=== PATIENT | female | born 1985 | race Caucasian/White ===

== ENCOUNTER → 2022-07-05 | Outpatient (CLI) | payer OTHER ==
[2022-07-05 08:40] VITALS: BP 103/77; PULSE 74; RESP 17; TEMP 98
--- NOTE | 2022-07-05 09:33 | P.HPOB ---
History of Present Illness H&P Date: 07/05/22 Chief Complaint: The patient is here for her routine gynecologic exam. This is a 36-year-old 012 with an LMP of approximately 2016. She is here to establish with this office. It has been about 2 years since her last pelvic exam. She had a Mirena IUD placed approximately 2-3 years ago. This is her second Mirena IUD. She has been amenorrheic while using the Mirena IUD. She would like to have the Mirena IUD removed since she would like to attempt . She is without gynecologic complaints. Review of Systems The patient's weight has been stable over the last year. She denies respiratory, cardiac, or G.I. problems. 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 No other STDs. History of Any Multi-Drug Resistant Organisms: None Reported Past Surgical History: No Surgical Hx Reported Additional Past Surgical History / Comment(s): Past OB history: 2 vaginal deliveries and one VTP. Past Anesthesia/Blood Transfusion Reactions: No Reported Reaction Past Psychological History: Anxiety, Depression (Controlled with medication.) Smoking Status: Never smoker Past Alcohol Use History: Occasional (0-3 per month) Past Drug Use History: Marijuana (Tried marijuana in the last year but does not regularly use this.) Additional History: She is single and has been with her boyfriend since 2021. They live together. 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 - Past Family History Mother Family Medical History: Diabetes Mellitus, Hypertension Additional Family Medical History / Comment(s): No family history of mental retardation or defects. Father Family Medical History: Diabetes Mellitus Additional Family Medical History / Comment(s): Paternal grandmother had colon cancer. Medications and Allergies Home Medications Medication Instructions Recorded Confirmed Type Escitalopram [Lexapro] 20 mg PO DAILY 07/05/22 07/05/22 History Propranolol [Inderal] 20 mg PO BID 07/05/22 07/05/22 History buPROPion XL [Wellbutrin XL] 300 mg PO DAILY 07/05/22 07/05/22 History Allergies Allergy/AdvReac Type Severity Reaction Status Date / Time No Known Allergies Allergy Unverified 07/05/22 08:35 Exam Vital Signs Temp Pulse Resp BP Pulse Ox 07/05/22 08:37 98.0 F 74 17 103/77 99 Intake and Output 07/04/22 07/05/22 07/05/22 22:59 06:59 14:59 Other: Weight 110.223 kg Height 5 feet 7 inches, weight 243 pounds, BMI 38.1. This is a well-developed well-nourished white female who is alert and oriented times 3 in no acute distress. HEENT: Within normal limits. NECK: Supple without mass or thyromegaly. CHEST AND LUNGS: Clear to auscultation. HEART: Regular rate and rhythm. BREASTS: Are without mass or discharge. AXILLARY EXAM: Negative for adenopathy. BACK: Negative for CVA tenderness. ABDOMEN: Soft, nontender, without palpable masses. PELVIC EXAM: Normal external genitalia. Cervix and vagina appear normal. The cervix is multiparous. The IUD string protruded from the cervix by about 2.5cm. There is no unusual discharge. There is no evidence of prolapse. The uterus is midposition, nongravid size and nontender. There are no palpable adnexal masses or tenderness. RECTAL EXAM: negative for mass or tenderness. EXTREMITIES: Nontender. Procedure: Per the patient's request, the Mirena IUD was removed. This was done by grasping the IUD string with a ring forcep and this was removed without difficulty. The IUD was intact. The patient tolerated the procedure well. IMPRESSION: 1. 36-year-old female who has been amenorrheic while using the Mirena IUD during the past 7 years with normal gynecologic exam. 2. The Mirena IUD was removed today without difficulty and this was done by the patient's request since she would like to attempt in the near future. PLAN: 1. Pap smear cotest was performed. 2. Self breast awareness was discussed with the patient. We have also discussed symptoms associated with inflammatory breast cancer. 3. We have had a long discussion regarding the conception planning. I have recommended that she avoid until she has had 2 normal menstrual periods. She will keep a menstrual calendar. Have also recommended that she discuss her medications with the prescribing physician and let them know that she is planning to attempt . She understands there are theoretical risks taking medications during . She will try to minimize medications to control her depression and anxiety. She should not change her medications on her own, but consult with the prescribing physician. I have also recommended that she take a daily multivitamin with folic acid. She should also watch what she ingests including [id number] medications That these could potentially effect a . She understands that I no longer deliver babies and that she should establish with a local dispersion mixer for a . 4. Self breast awareness was discussed with the patient. We have also discussed symptoms associated with inflammatory breast cancer. 5. Osteoporosis prevention was discussed. I have stressed the importance of adequate calcium, vitamin D and regular exercise. Recommended amounts of calcium and vitamin D were also discussed. 6. She was advised to return in one year for her annual well woman exam. If she does get she will establish with a local dispersion mixer.
== END ==
LOC: WWCWWP 08:26
PROVIDERS: ATTEND Obstetrics & Gynecology
DX: Z01.419 Encounter for gynecological examination (general) (routine) without abnormal findings (principal); Z30.432 Encounter for removal of intrauterine contraceptive device; Z79.899 Other long term (current) drug therapy; Z80.0 Family history of malignant neoplasm of digestive organs; Z82.49 Family history of ischemic heart disease and other diseases of the circulatory system; Z83.3 Family history of diabetes mellitus

== ENCOUNTER 2023-02-13 01:57 | Emergency (ER) | payer OTHER ==
[2023-02-13 02:03] VITALS: RESP 18; TEMP 98.6
[2023-02-13] MEDS ORDERED: SODIUM CHLORIDE 0.9% 1,000 ML IV STA (02:21)
[2023-02-13] MEDS ORDERED: METOCLOPRAMIDE 5 MG/ML 2 ML VIAL IVP STA (02:22)
--- NOTE | 2023-02-13 02:29 | ED ---
General Adult HPI - General Chief complaint: Nausea/Vomiting/Diarrhea Stated complaint: 8weeks , N/V Time Seen by Provider: 02/13/23 02:07 Source: patient Mode of arrival: ambulatory Limitations: no limitations - History of Present Illness Initial comments: 37 year old A1 female presenting to the ED with a chief complaint of nausea and vomiting. Patient reports she is currently approximately 8 weeks . Patient reports the last 3 weeks she has had nausea and vomiting however significant worsening of it over the past few days. Patient states for the past 2-3 days has been unable to keep any food down. Does not follow with OB at. No chest pain or shortness of breath. Denies vaginal bleeding or abdominal pain. No other complaints. - Related Data Home Medications Medication Instructions Recorded Confirmed Escitalopram [Lexapro] 20 mg PO DAILY 07/05/22 07/05/22 Propranolol [Inderal] 20 mg PO BID 07/05/22 07/05/22 buPROPion XL [Wellbutrin XL] 300 mg PO DAILY 07/05/22 07/05/22 Previous Rx's Medication Instructions Recorded Doxylamine Succinate/Vit B6 1 tab PO DIRECTED #120 tab 02/13/23 [Constantino Batista 10-10 mg Tablet] Allergies Allergy/AdvReac Type Severity Reaction Status Date / Time No Known Allergies Allergy Verified 02/13/23 02:02 Review of Systems ROS Statement: Those systems with pertinent positive or pertinent negative responses have been documented in the HPI. ROS Other: All systems not noted in ROS Statement are negative. 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 No other STDs. History of Any Multi-Drug Resistant Organisms: None Reported Past Surgical History: No Surgical Hx Reported Additional Past Surgical History / Comment(s): Past OB history: 2 vaginal d eliveries and one VTP. Past Anesthesia/Blood Transfusion Reactions: No Reported Reaction Past Psychological History: Anxiety, Depression Smoking Status: Never smoker Past Alcohol Use History: Occasional Past Drug Use History: Marijuana - Past Family History Mother Family Medical History: Diabetes Mellitus, Hypertension Additional Family Medical History / Comment(s): No family history of mental retardation or defects. Father Family Medical History: Diabetes Mellitus Additional Family Medical History / Comment(s): Paternal grandmother had colon cancer. General Exam Limitations: no limitations General appearance: alert Neck exam: Present: normal inspection Respiratory exam: Present: normal lung sounds bilaterally Cardiovascular Exam: Present: regular rate, normal rhythm GI/Abdominal exam: Present: soft (No tenderness to palpation. No rebound guarding or rigidity.) Neurological exam: Present: alert, oriented X3 Skin exam: Present: warm, dry Course Vital Signs 02/13/23 02:00 Temperature 98.6 F Pulse Rate 84 Respiratory 18 Rate Blood Pressure 156/96 O2 Sat by Pulse 100 Oximetry Medical Decision Making - Medical Decision Making Was pt. sent in by a medical professional or institution (, PA, CHARRER, urgent care, hospital, or half-way...) When possible be specific @ -None Did you speak to anyone other than the patient for history (EMS, parent, family, police, friend...)? What history was obtained from this source @ -No Did you review nursing and triage notes (agree or disagree)? Why? @ -I reviewed and agree with nursing and triage notes Were old charts reviewed (outside hosp., previous admission, EMS record, old EKG, old radiological studies, urgent care reports/EKG's, half-way records)? Report findings @ -No old charts were reviewed Differential Diagnosis (chest pain, altered mental status, abdominal pain women, abdominal pain men, vaginal bleeding, weakness, fever, dyspnea, syncope, headache, dizziness, GI bleed, back pain, seizure, CVA, palpatations, mental health, musculoskeletal)? @ -Differential Abdominal Pain Women: Appendicitis, Cholecystitis, diverticulosis, ischemic bowel, pancreatitis, hepatitis, UTI, gastroenteritis, AAA, incarcerated hernia, bowel obstruction, constipation, inflammatory bowel, hepatitis, peptic ulcer disease, splenic infarction, perforated viscus, vulvitis, ovarian torsion, PID, kidney stone, placenta abruption, this is not meant to be an all-inclusive list EKG interpreted by me (3pts min.). @ -None X-rays interpreted by me (1pt min.). @ -None done CT interpreted by me (1pt min.). @ -None done U/S interpreted by me (1pt. min.). @ -None done What testing was considered but not performed or refused? (CT, X-rays, U/S, labs)? Why? @ -None What meds were considered but not given or refused? Why? @ -None Did you discuss the management of the patient with other professionals (professionals i.e. , PA, CHARRER, lab, RT, psych nurse, addiction social worker, technology specialist, teacher, licensed loan officer, manager of case)? Give summary @ -No Was smoking cessation discussed for >3mins.? @ -No Was critical care preformed (if so, how long)? @ -No Were there social determinants of health that impacted care today? How? (Homelessness, low income, unemployed, alcoholism, drug addiction, transportation, low edu. Level, literacy, decrease access to med. care, halfway, rehab)? @ -No Was there de-escalation of care discussed even if they declined (Discuss DNR or withdrawal of care, Hospice)? DNR status @ -No What co-morbidities impacted this encounter? (DM, HTN, Smoking, COPD, CAD, Cancer, CVA, ARF, Chemo, Hep., AIDS, mental health diagnosis, sleep apnea, morbid obesity)? @ - Was patient admitted / discharged? Hospital course, mention meds given and route, prescriptions, significant lab abnormalities, going to OR and other pertinent info. @ -Discharge A 37-year-old female who is approximately 8 weeks presents to the ED with nausea and vomiting, no abdominal pain or vaginal bleeding. Laboratory studies largely unremarkable. Urine did show some white blood cells however sample was very contaminated and patient asymptomatic. Discussed pros and cons of antiemetic use. Patient states that she would like to try Reglan. Patient provided a dose of Reglan here in the ED with significant improvement of symptoms. Patient PO challenged tolerated with no difficulty. Provided starter pack of Zofran and discussed pros and cons of use. Discharged with prescription for likely just in stable condition. 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 Discussed return precautions with patient and family who verbalizes agreement. Undiagnosed new problem with uncertain prognosis? @ -No Drug Therapy requiring intensive monitoring for toxicity (Heparin, Nitro, Insulin, Cardizem)? @ -No Were any procedures done? @ -No Diagnosis/symptom? @ -Nausea and vomiting Acute, or Chronic, or Acute on Chronic? @ -Acute Uncomplicated (without systemic symptoms) or Complicated (systemic symptoms)? @ -Uncomplicated Side effects of treatment? @ -No Exacerbation, Progression, or Severe Exacerbation? @ -No Poses a threat to life or bodily function? How? (Chest pain, USA, [place], pneumonia, PE, COPD, DKA, ARF, appy, cholecystitis, CVA, Diverticulitis, Homicidal, Suicidal, threat to staff... and all critical care pts) @ -No - Lab Data Result diagrams: 02/13/23 02:21 02/13/23 02:21 Lab Results 02/13/23 02/13/23 02/13/23 Range/Units 02:21 02:21 02:31 WBC 10.5 (3.8-10.6) k/uL RBC 4.82 (3.80-5.40) m/uL Hgb 14.6 (11.4-16.0) gm/dL Hct 43.5 (34.0-46.0) % MCV 90.1 (80.0-100.0) fL MCH 30.3 (25.0-35.0) pg MCHC 33.6 (31.0-37.0) g/dL RDW 13.4 (11.5-15.5) % Plt Count 325 (150-450) k/uL MPV 7.9 Neutrophils % 75 % Lymphocytes % 18 % Monocytes % 4 % Eosinophils % 1 % Basophils % 0 % Neutrophils # 7.8 H (1.3-7.7) k/uL Lymphocytes # 1.9 (1.0-4.8) k/uL Monocytes # 0.4 (0-1.0) k/uL Eosinophils # 0.1 (0-0.7) k/uL Basophils # 0.0 (0-0.2) k/uL Sodium 136 L (137-145) mmol/L Potassium 4.3 (3.5-5.1) mmol/L Chloride 104 (98-107) mmol/L Carbon Dioxide 21 L (22-30) mmol/L Anion Gap 11 mmol/L BUN 12 (7-17) mg/dL Creatinine 0.54 (0.52-1.04) mg/dL Est GFR (CKD-EPI)AfAm >90 (>60 ml/min/1.73 sqM) Est GFR (CKD-EPI)NonAf >90 (>60 ml/min/1.73 sqM) Glucose 87 (74-99) mg/dL Calcium 9.5 (8.4-10.2) mg/dL Total Bilirubin 0.9 (0.2-1.3) mg/dL AST 29 (14-36) U/L ALT 27 (4-34) U/L Alkaline Phosphatase 39 (38-126) U/L Total Protein 7.3 (6.3-8.2) g/dL Albumin 4.4 (3.5-5.0) g/dL Urine Color Yellow Urine Appearance Turbid H (Clear) Urine pH 5.5 (5.0-8.0) Ur Specific [place] 1.031 (1.001-1.035) Urine Protein 1+ H (Negative) Urine Glucose (UA) Negative (Negative) Urine Ketones 3+ H (Negative) Urine Blood Small H (Negative) Urine Nitrite Negative (Negative) Urine Bilirubin Negative (Negative) Urine Urobilinogen <2.0 (<2.0) mg/dL Ur Leukocyte Esterase Large H (Negative) Urine RBC 7 H (0-5) /hpf Urine WBC 102 H (0-5) /hpf Ur Squamous Epith Cells 72 H (0-4) /hpf Urine Bacteria Moderate H (None) /hpf Urine Mucus Many H (None) /hpf Disposition Clinical Impression: Nausea and vomiting during Disposition: HOME SELF-CARE Condition: Good Instructions (If sedation given, give patient instructions): Nausea and Vomiting in (ED) Prescriptions: Doxylamine Succinate/Vit B6 [Constantino Batista 10-10 mg Tablet] 1 tab PO DIRECTED #120 tab Is patient prescribed a controlled substance at d/c from ED?: No Referrals: None,Stated [Primary Care Provider] - 1-2 days Time of Disposition: 04:09
[2023-02-13 02:49] LABS: Basophils % (A) 0 %; Eosinophils # (A) 0.1 k/uL (0-0.7); Eosinophils % (A) 1 %; HCT 43.5 % (34.0-46.0); HGB 14.6 gm/dL (11.4-16.0); Lymphocytes # (A) 1.9 k/uL (1.0-4.8); Lymphocytes % (A) 18 %; MCH 30.3 pg (25.0-35.0); MCHC 33.6 g/dL (31.0-37.0); MCV 90.1 fL (80.0-100.0); Mean Platelet Volume 7.9; Monocytes # (A) 0.4 k/uL (0-1.0); Monocytes % (A) 4 %; Neutrophils # (A) 7.8 k/uL (1.3-7.7); Neutrophils % (A) 75 %; Platelet Count 325 k/uL (150-450); RBC 4.82 m/uL (3.80-5.40); RDW 13.4 % (11.5-15.5); WBC 10.5 k/uL (3.8-10.6)
[2023-02-13 02:56] LABS: Appearance,Urine Turbid (Clear); Bacteria,Urine Moderate /hpf; Bilirubin,Urine Negative (Negative); Blood,Urine Small (Negative); Color,Urine Yellow; Glucose,Urine (UA) Negative (Negative); Ketones,Urine 3+ (Negative); Leukocyte Esterase,Urine Large (Negative); Mucus,Urine Many /hpf; Nitrite,Urine Negative (Negative); PH, Urine 5.5 (5.0-8.0); Protein,Urine 1+ (Negative); RBC,Urine 7 /hpf (0-5); Specific Gravity,Urine 1.031 (1.001-1.035); Squamous Epithelial Cell,Urine 72 /hpf (0-4); Urobilinogen,Urine <2.0 mg/dL (<2.0); WBC,Urine 102 /hpf (0-5)
[2023-02-13 03:02] LABS: ALT 27 U/L (4-34); AST 29 U/L (14-36); African American GFR (CKD) >90 (>60 ml/min/1.73 sqM); Albumin 4.4 g/dL (3.5-5.0); Alkaline Phosphatase 39 U/L (38-126); Anion Gap 11 mmol/L; Blood Urea Nitrogen 12 mg/dL (7-17); Calcium 9.5 mg/dL (8.4-10.2); Carbon Dioxide 21 mmol/L (22-30); Chloride 104 mmol/L (98-107); Glucose 87 mg/dL (74-99); Non-African American GFR(CKD) >90 (>60 ml/min/1.73 sqM); Potassium 4.3 mmol/L (3.5-5.1); Sodium 136 mmol/L (137-145); Total Bilirubin 0.9 mg/dL (0.2-1.3); Total Protein 7.3 g/dL (6.3-8.2)
[2023-02-13] MEDS ORDERED: ONDANSETRON 4 MG ODT STARTER PACK 2 TAB BTL PO STA (04:07)
[2023-02-13 04:50] VITALS: BP 122/7; PULSE 79
== END 2023-02-13 04:46 | disposition home or self-care (01) ==
LOC: EC 01:57
DX: O21.9 Vomiting of pregnancy, unspecified (principal); O99.331 Smoking (tobacco) complicating pregnancy, first trimester; F12.90 Cannabis use, unspecified, uncomplicated; Z86.59 Personal history of other mental and behavioral disorders; Z3A.08 8 weeks gestation of pregnancy
CPT/HCPCS: 36415; 80053; 85025; 81001; 84702; 99284; 96374; 96361; J2765; S0119

== ENCOUNTER 2023-05-27 17:45 | Emergency (ER) | payer OTHER ==
[2023-05-27 17:53] VITALS: RESP 20; TEMP 98.4
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
[2023-05-27 18:59] LABS: Appearance,Urine Cloudy (Clear); Bilirubin,Urine Negative (Negative); Blood,Urine Negative (Negative); Color,Urine Light Yellow; Glucose,Urine (UA) Negative (Negative); Ketones,Urine Negative (Negative); Leukocyte Esterase,Urine Moderate (Negative); Mucus,Urine Rare /hpf; Nitrite,Urine Negative (Negative); PH, Urine 6.5 (5.0-8.0); Protein,Urine Trace (Negative); RBC,Urine 2 /hpf (0-5); Specific Gravity,Urine 1.028 (1.001-1.035); Squamous Epithelial Cell,Urine 14 /hpf (0-4); Urobilinogen,Urine <2.0 mg/dL (<2.0); WBC,Urine 14 /hpf (0-5)
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
[2023-05-27 20:08] VITALS: BP 115/83; PULSE 102
== END 2023-05-27 20:04 | disposition home or self-care (01) ==
LOC: EC 17:45
DX: O9A.212 Injury, poisoning and certain other consequences of external causes complicating pregnancy, second trimester (principal); S39.91XA Unspecified injury of abdomen, initial encounter; O99.322 Drug use complicating pregnancy, second trimester; F12.90 Cannabis use, unspecified, uncomplicated; Z86.59 Personal history of other mental and behavioral disorders; Z3A.23 23 weeks gestation of pregnancy; V49.50XA Passenger injured in collision with unspecified motor vehicles in traffic accident, initial encounter; Y92.410 Unspecified street and highway as the place of occurrence of the external cause
CPT/HCPCS: 76805; 81001; 87086; 99284

== ENCOUNTER 2023-05-27 19:58 | Outpatient (CLI) | payer OTHER ==
[2023-05-28 01:56] VITALS: BP 134/76; PULSE 91; RESP 16; TEMP 97.4
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
== END 2023-05-27 21:25 | disposition home or self-care (01) ==
LOC: FBPOP 19:58
PROVIDERS: ATTEND Obstetrics & Gynecology
DX: O9A.212 Injury, poisoning and certain other consequences of external causes complicating pregnancy, second trimester (principal); S39.91XA Unspecified injury of abdomen, initial encounter; Z3A.23 23 weeks gestation of pregnancy; V89.2XXA Person injured in unspecified motor-vehicle accident, traffic, initial encounter
CPT/HCPCS: 99213

== ENCOUNTER 2023-09-12 11:48 | Outpatient (CLI) | payer OTHER ==
[2023-09-12 14:18] LABS: Basophils % (A) 0 %; Eosinophils # (A) 0.1 k/uL (0-0.7); Eosinophils % (A) 1 %; HCT 37.1 % (34.0-46.0); HGB 11.8 gm/dL (11.4-16.0); Lymphocytes # (A) 1.4 k/uL (1.0-4.8); Lymphocytes % (A) 16 %; MCH 27.9 pg (25.0-35.0); MCHC 31.8 g/dL (31.0-37.0); MCV 87.7 fL (80.0-100.0); Mean Platelet Volume 8.7; Monocytes # (A) 0.5 k/uL (0-1.0); Monocytes % (A) 5 %; Neutrophils # (A) 6.8 k/uL (1.3-7.7); Neutrophils % (A) 76 %; Platelet Count 259 k/uL (150-450); RBC 4.23 m/uL (3.80-5.40); RDW 14.7 % (11.5-15.5)
[2023-09-12 14:28] LABS: ALT 13 U/L (4-34); AST 17 U/L (14-36); African American GFR (CKD) >90 (>60 ml/min/1.73 sqM); Blood Urea Nitrogen 11 mg/dL (7-17); Non-African American GFR(CKD) >90 (>60 ml/min/1.73 sqM)
[2023-09-12 14:29] LABS: Creatinine,Urine Random 247.9 mg/dL; Protein/Creatinine Ratio,Urine 0.024
[2023-09-12 14:34] LABS: Appearance,Urine Cloudy (Clear); Bacteria,Urine Rare /hpf; Bilirubin,Urine Negative (Negative); Blood,Urine Trace (Negative); Color,Urine Yellow; Glucose,Urine (UA) Negative (Negative); Ketones,Urine Negative (Negative); Leukocyte Esterase,Urine Negative (Negative); Mucus,Urine Moderate /hpf; Nitrite,Urine Negative (Negative); PH, Urine 6.5 (5.0-8.0); Protein,Urine 1+ (Negative); RBC,Urine 1 /hpf (0-5); Squamous Epithelial Cell,Urine 7 /hpf (0-4); Urobilinogen,Urine <2.0 mg/dL (<2.0); WBC,Urine 1 /hpf (0-5)
[2023-09-12 15:31] VITALS: BP 135/92; PULSE 109; RESP 16; TEMP 98
--- NOTE | 2023-09-15 09:47 | P.MSEPDOC ---
Presenting Problems - Arrival Data Date of Arrival on Unit: 09/12/23 Time of Arrival on Unit: 11:48 Mode of Transport: Ambulatory - Complaint OB-Reason for Admission/Chief Complaint: PIH Medical History - Information : 4 Para: 2 Term: 2 : 0 Abortions: Spontaneous or Elective: 1 Number of Living Children: 2 - Gestational Age Gestational Age by JAZZMINE (wks/days): 39 Weeks and 1 Days Review of Systems - Review of Systems Constitutional: No problems Breast: No problems ENT: No problems Cardiovascular: No problems Respiratory: No problems Gastrointestinal: No problems Genitourinary: No problems Musculoskeletal: No problems Neurological: No problems Skin: No problems Vital Signs - Temperature Temperature: 98.0 F Temperature Source: Oral - Pulse Right Sitting Pulse Rate: 109 Pulse Assessment Method: Automatic Cuff - Respirations Respiratory Rate: 16 Oxygen Delivery Method: Room Air O2 Sat by Pulse Oximetry: 95 - Blood Pressure Right Arm Blood Pressure: 135/92 Blood Pressure Mean: 106 Blood Pressure Source: Automatic Cuff Medical Screen Scoring - Uterine Contractions Intensity: Mild Resting: Soft to palpation - Assessment - Baby A Baseline FHR: 140 Heart Rate - NICHD Category: Category I (Normal) NST: Reactive Physician Notification - Physician Notified Physician Notified Date: 09/12/23 Physician Notified Time: 15:02 Physician: Darryl De La Vega Order Received: Yes (d/c home) Maternal Triage Index - Prompt/Priority 3 Prompt Priority 3: Yes Criteria Met for Priority 3: pt sent from office for [facility] eval, bps 130-140s/70-90s. pt asymptomatic, labs wnl, reactive nst. Disposition - Disposition OB Disposition: Discharge to home, Written follow up instructions reviewed Discharge Date: 09/12/23 Discharge Time: 15:02 I agree with the RN Medical Screening Exam: Yes Case reviewed; plan agreed upon as documented in EMR&OBIX.: Yes Diagnosis: RELATED CONDITIONS, UNSPECIFIED, THIRD TRIMESTER
== END 2023-09-12 15:02 | disposition home or self-care (01) ==
LOC: FBPOP 11:48
PROVIDERS: ATTEND Obstetrics & Gynecology
DX: O13.3 Gestational [pregnancy-induced] hypertension without significant proteinuria, third trimester (principal); Z3A.39 39 weeks gestation of pregnancy
CPT/HCPCS: 36415; 59025; 81001; 82565; 82570; 84156; 84450; 84460; 84520; 85025

== ENCOUNTER 2023-09-14 10:28 | Outpatient (CLI) | payer OTHER ==
[2023-09-14 11:09] LABS: Appearance,Urine Turbid (Clear); Bacteria,Urine Moderate /hpf; Bilirubin,Urine Negative (Negative); Blood,Urine Small (Negative); Color,Urine Yellow; Glucose,Urine (UA) Negative (Negative); Ketones,Urine Negative (Negative); Leukocyte Esterase,Urine Large (Negative); Mucus,Urine Many /hpf; Nitrite,Urine Negative (Negative); Protein,Urine 1+ (Negative); RBC,Urine 8 /hpf (0-5); Specific Gravity,Urine 1.028 (1.001-1.035); Squamous Epithelial Cell,Urine 68 /hpf (0-4); Urobilinogen,Urine <2.0 mg/dL (<2.0); WBC,Urine 83 /hpf (0-5)
[2023-09-14 12:01] VITALS: BP 142/82; PULSE 103; RESP 18; TEMP 97.3
--- NOTE | 2023-09-15 09:48 | P.MSEPDOC ---
Presenting Problems - Arrival Data Date of Arrival on Unit: 09/14/23 Time of Arrival on Unit: 10:28 Mode of Transport: Ambulatory - Complaint OB-Reason for Admission/Chief Complaint: Headache, Visual Disturbances, Pain Comment: Patient had elevated blood pressures at home and complaints of headache rated 4/10. Had visual disturbances last night with ocular migraine and floaters. Medical History - Information : 4 Para: 2 Term: 2 : 0 Abortions: Spontaneous or Elective: 1 Number of Living Children: 2 - Gestational Age Gestational Age by JAZZMINE (wks/days): 39 Weeks and 3 Days Review of Systems - Review of Systems Constitutional: No problems Breast: No problems ENT: No problems Cardiovascular: No problems Respiratory: No problems Gastrointestinal: No problems Genitourinary: No problems Musculoskeletal: No problems Neurological: No problems Skin: No problems Vital Signs - Temperature Temperature: 97.3 F Temperature Source: Temporal Artery Scan - Pulse Pulse Oximetery Pulse Rate: 103 Pulse Assessment Method: Pulse Oximetry - Respirations Respiratory Rate: 18 Oxygen Delivery Method: Room Air O2 Sat by Pulse Oximetry: 97 - Blood Pressure Right Arm Blood Pressure: 142/82 Blood Pressure Mean: 102 Blood Pressure Source: Automatic Cuff Medical Screen Scoring - Uterine Contractions Intensity: Mild Resting: Soft to palpation - Assessment - Baby A Baseline FHR: 130 Heart Rate - NICHD Category: Category I (Normal) NST: Reactive Maternal Triage Index - Maternal Triage Index Presenting for scheduled procedure w/no complaint: No - Stat/Priority 1 Stat Priority 1: No - Urgent/Priority 2 Urgent Priority 2: Yes Provider Notified: Darryl De La Vega Provider Notified Time: 11:14 Criteria Met for Priority 2: Patient had elevated blood pressures at home and complaints of headache rated 4/10. Had visual disturbances last night with ocular migraine and floaters. Disposition - Disposition OB Disposition: Triage, Discharge to home, Written follow up instructions reviewed Discharge Date: 09/14/23 Discharge Time: 11:20 I agree with the RN Medical Screening Exam: Yes Physician's MSE Comment: I have neither seen nor examined the patient. Case reviewed; plan agreed upon as documented in EMR&OBIX.: Yes Diagnosis: RELATED CONDITIONS, UNSPECIFIED, THIRD TRIMESTER
== END 2023-09-14 11:20 | disposition home or self-care (01) ==
LOC: FBPOP 10:28
PROVIDERS: ATTEND Obstetrics & Gynecology
DX: O99.353 Diseases of the nervous system complicating pregnancy, third trimester (principal); G43.809 Other migraine, not intractable, without status migrainosus; H53.8 Other visual disturbances; Z3A.39 39 weeks gestation of pregnancy
CPT/HCPCS: 59025; 81001; G0463; 99213

== ENCOUNTER 2023-09-15 06:17 | Inpatient (IN) | payer OTHER ==
[2023-09-15] MEDS ORDERED: LIDOCAINE 0.5% (PF) 5 MG/ML (50 ML SDV) SQ PRN (06:39)
[2023-09-15] MEDS ORDERED: TRANEXAMIC 1,000 MG/100ML-NACL 1,000 MG in EMPTY BAG 1 BAG IV PRN (06:39)
[2023-09-15] MEDS ORDERED: METHYLERGONOVINE 0.2 MG/ML 1 ML AMP IM PRN (06:39)
[2023-09-15] MEDS ORDERED: CARBOPROST TROMETHAMINE 250 MCG/ML 1 ML AMP IM PRN (06:39)
[2023-09-15] MEDS ORDERED: OXYTOCIN 10 UNIT/ML 1 ML VIAL IM PRN (06:39)
[2023-09-15] MEDS ORDERED: TERBUTALINE 1 MG/ML VIAL SQ PRN (06:39)
[2023-09-15] MEDS ORDERED: miSOPROStoL 200 MCG TAB PO PRN (06:39)
[2023-09-15] MEDS: LACTATED RINGERS 1,000 ML IV SCH (06:48)
[2023-09-15] MEDS: OXYTOCIN 30 UNITS/500 ML NS 30 UNIT in SALINE 1 500ML.BAG IV SCH (06:49)
[2023-09-15 07:01] LABS: Basophils % (A) 1 %; Eosinophils # (A) 0.1 k/uL (0-0.7); Eosinophils % (A) 2 %; HCT 34.4 % (34.0-46.0); HGB 11.1 gm/dL (11.4-16.0); Lymphocytes # (A) 1.7 k/uL (1.0-4.8); Lymphocytes % (A) 23 %; MCH 28.6 pg (25.0-35.0); MCHC 32.3 g/dL (31.0-37.0); MCV 88.5 fL (80.0-100.0); Mean Platelet Volume 8.3; Monocytes # (A) 0.4 k/uL (0-1.0); Monocytes % (A) 5 %; Neutrophils # (A) 5.2 k/uL (1.3-7.7); Neutrophils % (A) 69 %; Platelet Count 234 k/uL (150-450); RBC 3.88 m/uL (3.80-5.40); RDW 14.5 % (11.5-15.5); WBC 7.6 k/uL (3.8-10.6)
[2023-09-15] MEDS ORDERED: ROPIVACAINE 5 MG/ML 30 ML VIAL ONE (09:15)
[2023-09-15] MEDS ORDERED: SODIUM CHLORIDE 0.9% 250 ML BAG ONE (09:15)
[2023-09-15] MEDS ORDERED: fentaNYL (PF) 50 MCG/ML 5 ML AMP ONE (09:15)
--- NOTE | 2023-09-15 09:22 | P.HPOB ---
History of Present Illness H&P Date: 09/15/23 Chief Complaint: 39-4/7 weeks, gestational hypertension The patient is a 38-year-old 4 para 2-0-1-2 admitted at 39-4/7 weeks as established by 10-week ultrasound. She is admitted with a recent diagnosis and onset of gestational hypertension with a negative workup for preeclampsia. Blood pressures have remained in the 130s to 150/90-100 range for the last several days. On labor and delivery, all signs are reassuring with a category 1 heart rate tracing. Her has been essentially uncomplicated until this point. She does fall into the category of advanced maternal age and declined trisomy testing. Group B strep status is negative. Obstetrical history: 4 para 2-0-1-2 with 2 term vaginal deliveries without complications. Current statistics are listed in history of present illness. EDC of 09/18/2023 was established by a 10-week ultrasound. Laboratory workup demonstrates a blood type of A+ with a negative antibody screen. Rubella status is immune. The remainder of the laboratory workup was within normal limits. 1 hour Glucola was normal and group B strep status is negative. Gynecologic history: Unremarkable with no history of any infections to include STDs. Review of Systems Review of systems is confined to history of present illness. 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 No other STDs. gestational htn / pih History of Any Multi-Drug Resistant Organisms: None Reported Past Surgical History: No Surgical Hx Reported Additional Past Surgical History / Comment(s): Past OB history: 2 vaginal deliveries and one VTP. Past Anesthesia/Blood Transfusion Reactions: No Reported Reaction Past Psychological History: Anxiety, Depression Additional Psychological History / Comment(s): not currently medicated Smoking Status: Never smoker Past Alcohol Use History: Occasional Past Drug Use History: Marijuana - Past Family History Mother Family Medical History: Diabetes Mellitus, Hypertension, Renal Disease Additional Family Medical History / Comment(s): cardiomyopathy. medication induc ed lupus. Father Family Medical History: Diabetes Mellitus Additional Family Medical History / Comment(s): Paternal grandmother had colon cancer. Medications and Allergies Home Medications Medication Instructions Recorded Confirmed Type No Known Home Medications 09/12/23 09/15/23 History Allergies Allergy/AdvReac Type Severity Reaction Status Date / Time No Known Allergies Allergy Verified 09/15/23 06:38 Exam Vital Signs Temp Pulse Resp BP Pulse Ox 09/15/23 06:37 97.4 F L 101 H 18 145/104 98 Intake and Output 09/14/23 09/15/23 09/15/23 22:59 06:59 14:59 Other: Weight 134.717 kg In general, this is a well-developed, well-nourished white female in no acute distress. Her heart has a regular rhythm and rate without murmur. Her lungs are clear to auscultation bilaterally in all lopez. Her abdomen is gravid, nondistended, has normal active bowel sounds, soft, nontender, and without any palpable masses aside from the uterine fundus. Her extremities are without any cyanosis, clubbing, or significant edema and are nontender to palpation bi laterally. Digital cervical examination demonstrates her cervix to be 3 cm dilated, 60% effaced, with a vertex and presentation at -2-3 station. Artificial rupture of membranes is carried out demonstrating clear fluid. Results Result Diagrams: 09/15/23 06:45 Abnormal Lab Results - Last 24 Hours (Table) 09/15/23 Range/Units 06:45 Hgb 11.1 L (11.4-16.0) gm/dL Assessment and Plan (1) Term Current Visit: Yes Status: Acute Code(s): Z34.90 - ENCNTR FOR SUPRVSN OF NORMAL , UNSP, UNSP TRIMESTER SNOMED Code(s): 02628514 (2) Gestational hypertension Current Visit: Yes Status: Acute Code(s): O13.9 - GESTATIONAL HTN W/O SIGNIFICANT PROTEINURIA, UNSP TRIMESTER SNOMED Code(s): 43934599 Plan: The patient is admitted for induction of labor. Pitocin augmentation has been started and she has undergone artificial rupture of membranes. She will have close maternal and surveillance and expectant management will be practiced. She is now requesting epidural catheter for analgesia which will be placed shortly.
[2023-09-15] MEDS ORDERED: diphenhydrAMINE 25 MG CAP PO PRN (12:09)
[2023-09-15] MEDS ORDERED: LANOLIN CREAM 1 GM TUBE TOPICAL PRN (12:09)
[2023-09-15] MEDS ORDERED: HYDROcodone/APAP 7.5-325MG 1 EACH TAB PO PRN (12:09)
[2023-09-15] MEDS ORDERED: SIMETHICONE 80 MG CHEWABLE PO PRN (12:09)
[2023-09-15] MEDS ORDERED: diphenhydrAMINE 50 MG CAP PO PRN (12:09)
[2023-09-15] MEDS ORDERED: HYDROcodone/APAP 5-325MG 1 EACH TAB PO PRN (12:09)
[2023-09-15] MEDS ORDERED: ZOLPIDEM 5 MG TAB PO PRN (12:09)
[2023-09-15] MEDS ORDERED: BENZOCAINE/MENTHOL SPRAY 1 GM/SPRAY AEROSOL TOPICAL PRN (12:09)
[2023-09-15] MEDS ORDERED: diphenhydrAMINE 50 MG/ML 1 ML VIAL IVP PRN ×2 (12:09)
[2023-09-15] MEDS ORDERED: HYDROCORTISONE 2.5% RECTAL CREAM 30 GM TUBE RECTAL PRN (12:09)
--- NOTE | 2023-09-15 12:12 | P.PROBDLV ---
Vaginal Delivery Note - . Vaginal Delivery Note: The patient is a 38-year-old 4 para 2-0-1-2 admitted at 39-4/7 weeks by good dating parameters. She is admitted for induction of labor with recent onset of gestational hypertension without preeclampsia. Her has been uncomplicated until the recent increase in blood pressures with a negative workup for preeclampsia as noted. On labor and delivery, she had Pitocin augmentation started and underwent artificial rupture of membranes for clear fluid. She made quick progress to the active phase of labor at which time an epidural catheter was placed for analgesia. She then progressed quickly through the active phase of labor to complete and pushed over the course of 2 pushes to a normal spontaneous vaginal delivery of a viable 8 pound 10 ounce baby boy with Apgars of 9 at 1 minute and 9 at 5 minutes delivered in the right occiput anterior position. The placenta was delivered spontaneously, intact, and grossly normal though there was significant calcifications present. There was a grossly normal, centrally inserted three-vessel cord. There was a small second- degree midline perineal laceration likely over the site of a previous laceration which was repaired in standard fashion using 3-0 chromic catgut without difficulty. Estimated blood loss for the case was approximately 150 mL. There were no complications. All sponge, instrument, and needle counts were correct. Both mother and are resting comfortably in recovery.
[2023-09-15] MEDS ORDERED: OXYTOCIN 30 UNITS/500 ML NS 30 UNIT in SALINE 1 500ML.BAG IV SCH (12:15)
[2023-09-15] MEDS: ROPIVACAINE 225 MG, fentaNYL (PF). 450 MCG in SODIUM CHLORIDE 0.9% 171 ML EPIDURAL ONE (17:06)
[2023-09-15] MEDS: IBUPROFEN 600 MG TAB PO PRN (18:44)
[2023-09-15] MEDS: SENNOSIDES-DOCUSATE SODIUM 1 EACH TAB PO SCH (19:55)
[2023-09-15] MEDS: ACETAMINOPHEN TAB 325 MG TAB PO PRN (19:55)
[2023-09-16 07:37] LABS: Basophils % (A) 0 %; Eosinophils # (A) 0.2 k/uL (0-0.7); Eosinophils % (A) 2 %; HCT 31.2 % (34.0-46.0); Lymphocytes # (A) 1.6 k/uL (1.0-4.8); Lymphocytes % (A) 18 %; MCH 28.3 pg (25.0-35.0); MCHC 32.2 g/dL (31.0-37.0); Mean Platelet Volume 8.4; Monocytes # (A) 0.5 k/uL (0-1.0); Monocytes % (A) 6 %; Neutrophils # (A) 6.4 k/uL (1.3-7.7); Neutrophils % (A) 73 %; Platelet Count 205 k/uL (150-450); RBC 3.55 m/uL (3.80-5.40); RDW 14.8 % (11.5-15.5); WBC 8.8 k/uL (3.8-10.6)
[2023-09-16 09:26] VITALS: BP 134/88; PULSE 81; RESP 18; TEMP 98.1
--- NOTE | 2023-09-16 10:55 | P.DS ---
Providers Date of admission: 09/15/23 06:17 Expected date of discharge: 09/16/23 Attending physician: Darryl De La Vega Primary care physician: Stated None - Discharge Diagnosis(es) (1) Term Current Visit: Yes Status: Acute (2) Gestational hypertension Current Visit: Yes Status: Acute (3) Normal spontaneous vaginal delivery Current Visit: Yes Status: Acute Hospital Course: The patient is a 38-year-old 4 para 2-0-1-2 admitted at 39-4/7 weeks by good dating parameters. She is admitted for induction of labor secondary to recent onset of gestational hypertension with no evidence of preeclampsia. On l abor delivery, all signs are reassuring with a category 1 heart rate tracing. Her was otherwise uncomplicated. She did fall into the category of advanced maternal age and declined trisomy testing. Group B strep status was negative. She had Pitocin augmentation started and underwent artificial rupture of membranes for clear fluid. She made fairly quick progress and had an epidural catheter placed for analgesia. She then progressed quickly through the active phase of labor to complete and pushed to a normal spontaneous vaginal delivery of a viable 8 pound 10 ounce baby boy with Apgars of 9 at 1 minute and 9 at 5 minutes. Her course was unremarkable with vital signs remaining stable and her temperature was afebrile throughout. She was deemed stable for discharge on day #1 and was discharged home to follow-up in the office in 6 weeks time routinely. Discharge instructions included calling for any significantly increased bleeding or foul-smelling lochia, significantly increased fever or abdominal pain, perineal complaints, breast complaints, or anything else that concerned her. She was additionally instructed to have nothing in the vagina for at least 6 weeks time to include intercourse. She understood her instructions and agrees to follow-up as noted above. Discharge medications included continued vitamins as she has opted to breast-feed. She was otherwise to use [id number] analgesic pain medications as necessary. Maternal blood type is a positive and rubella status is immune. Procedures: #1. Pitocin induction #2. Artificial rupture of membranes #3. Epidural analgesia #4. Normal spontaneous vaginal delivery #5. Repair of perineal laceration Patient Condition at Discharge: Stable Plan - Discharge Summary New Discharge Prescriptions: No Action No Known Home Medications Discharge Medication List No Known Home Medications 09/12/23 [History] Follow up Appointment(s)/Referral(s): Darryl De La Vega MD [STAFF PHYSICIAN] - 10/26/23 1:45 pm Discharge Disposition: HOME SELF-CARE
== END 2023-09-16 14:30 | disposition home or self-care (01) | DRG 560 ==
LOC: 4FBP 06:17
PROVIDERS: ADMIT Obstetrics & Gynecology; ATTEND Obstetrics & Gynecology
PROC: 10E0XZZ Delivery of Products of Conception, External Approach (ICD-10-PCS; principal; 2023-09-15)
PROC: 0KQM0ZZ Repair Perineum Muscle, Open Approach (ICD-10-PCS; principal; 2023-09-15)
PROC: 10907ZC Drainage of Amniotic Fluid, Therapeutic from Products of Conception, Via Natural or Artificial Opening (ICD-10-PCS; principal; 2023-09-15)
DX: O13.4 Gestational [pregnancy-induced] hypertension without significant proteinuria, complicating childbirth (principal); O70.1 Second degree perineal laceration during delivery; O43.893 Other placental disorders, third trimester; Z86.59 Personal history of other mental and behavioral disorders; Z28.310 Unvaccinated for COVID-19; Z3A.39 39 weeks gestation of pregnancy; Z37.0 Single live birth
CPT/HCPCS: 85025; 86850; 86900; 86901

== ENCOUNTER 2023-12-14 19:27 | Observation (INO) | payer OTHER ==
--- NOTE | 2023-12-14 19:53 | ED ---
Back Pain HPI - General Chief Complaint: Back Pain/Injury Stated Complaint: Back Pain Time Seen by Provider: 12/14/23 19:34 Source: patient, RN notes reviewed Mode of arrival: ambulatory Limitations: no limitations - History of Present Illness Initial Comments: This is a 38-year-old female who presents to the emergency department for back pain. States that she was on the toilet this evening when her lower back "seized up on her". After that she tried to walk her son to school, which made her pain even worse. She took some of her friend's medications, including a muscle relaxant, but continued to be in severe pain, which is particularly worse with any movement. Pain does not radiate into the abdomen and she denies any nausea or vomiting. Also denies any changes in bowel or bladder habits. Given the severity of her pain and difficulty moving, family opted to call EMS. EMS gave the patient ketamine en route, which was fairly effective for her pain. MD Complaint: back pain - Related Data Home Medications Medication Instructions Recorded Confirmed No Known Home Medications 12/15/23 12/15/23 Allergies Allergy/AdvReac Type Severity Reaction Status Date / Time No Known Allergies Allergy Verified 12/15/23 09:14 Review of Systems ROS Statement: Those systems with pertinent positive or pertinent negative responses have been documented in the HPI. ROS Other: All systems not noted in ROS Statement are negative. 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 No other STDs. gestational htn / pih History of Any Multi-Drug Resistant Organisms: None Reported Past Surgical History: No Surgical Hx Reported Additional Past Surgical History / Comment(s): Past OB history: 2 vaginal deliveries and one VTP. Past Anesthesia/Blood Transfusion Reactions: No Reported Reaction Past Psychological History: Anxiety, Depression Smoking Status: Never smoker Past Alcohol Use History: Occasional - Past Family History Mother Family Medical History: Diabetes Mellitus, Hypertension, Renal Disease Additional Family Medical History / Comment(s): cardiomyopathy. medication induced lupus. Father Family Medical History: Diabetes Mellitus Additional Family Medical History / Comment(s): Paternal grandmother had colon cancer. General Exam Limitations: no limitations General appearance: alert, in no apparent distress Head exam: Present: atraumatic, normocephalic, normal inspection Respiratory exam: Present: normal lung sounds bilaterally. Absent: respiratory distress, wheezes, rales, rhonchi, stridor Cardiovascular Exam: Present: regular rate, normal rhythm, normal heart sounds. Absent: systolic murmur, diastolic murmur, rubs, gallop, clicks GI/Abdominal exam: Present: soft, normal bowel sounds. Absent: distended, tenderness, guarding, rebound, rigid Back exam: Present: normal inspection, other (Tenderness to palpation over the lower lumbar spine). Absent: CVA tenderness (R), CVA tenderness (L), rash noted Neurological exam: Present: alert, oriented X3, CN II-XII intact Psychiatric exam: Present: normal affect, normal mood Skin exam: Present: warm, dry, intact, normal color. Absent: rash Course Vital Signs 12/14/23 12/14/23 12/15/23 19:30 22:05 03:00 Temperature 98.1 F Pulse Rate 64 72 80 Respiratory 16 16 20 Rate Blood Pressure 127/81 122/76 136/95 O2 Sat by Pulse 98 95 98 Oximetry 12/15/23 12/15/23 07:00 12:04 Temperature 98.1 F Pulse Rate 76 67 Respiratory 18 17 Rate Blood Pressure 136/88 126/81 O2 Sat by Pulse 97 99 Oximetry Medical Decision Making - Medical Decision Making This is a 38 year old female who presents to the emergency department for back pain. Was pt. sent in by a medical professional or institution? @ -No Did you speak to anyone other than the patient for history? @ -No Did you review nursing and triage notes? @ -Yes, and I agree, it is accurate with regards to the patient's symptoms. Were old charts reviewed? @ -No Differential Diagnosis? @ -Differential Back Pain: Strain, zoster, cauda equina syndrome, epidural abscess, vertebral osteomyelitis, discitis, fracture, subluxation, disc herniation, DJD, spinal stenosis, dissection, AAA, pancreatitis, peptic ulcer disease, pyelonephritis, kidney stone, this is not meant to be an all-inclusive list. EKG interpreted by me (3pts min.)? @ -Not obtained X-rays interpreted by me (1pt min.)? @ -Not obtained CT interpreted by me (1pt min.)? @ -CT scan of the lumbar spine obtained. My interpretation identifies no acute fractures. U/S interpreted by me (1pt. min.)? @ -Pelvic ultrasound obtained. My interpretation identifies no free fluid. What testing was considered but not performed? (CT, X-rays, U/S, labs)? Why? @ -None What meds were considered but not given? Why? @ -None Did you discuss the management of the patient with other professionals? @ -No Did you reconcile home meds? @ -No Was smoking cessation discussed for >3mins.? @ -No Was critical care preformed (if so, how long)? @ -No Were there social determinants of health that impacted care today? How? (Homele ssness, low income, unemployed, alcoholism, drug addiction, transportation, low edu. Level, literacy, decrease access to med. care, detention, rehab)? @ -No Was there de-escalation of care discussed even if they declined? (Discuss DNR or withdrawal of care, Hospice)? @ -No What co-morbidities impacted this encounter? (DM, HTN, Smoking, COPD, CAD, Canc er, CVA, Hep., AIDS, mental health diagnosis, sleep apnea, morbid obesity)? @ -Morbid obesity Was patient admitted / discharged? @ -Admitted. On arrival the patient's pain was in her mid lower back. We proceeded with a CT scan of the lumbar spine. No acute process in the lumbar spine was identified, however there was concern for her IUD being malpositioned. Pelvic ultrasound subsequently obtained. This revealed that the IUD was appropriately positioned and there were otherwise no acute findings. Patient had tenderness on exam but there were otherwise no external changes. She was given multiple doses of many pain medications but continued to be in severe pain. While lying down her symptoms were tolerable, but anytime nursing staff or the patient tried to get up, she was unsuccessful. Patient subsequently admitted to medicine for intractable back pain. Consult placed for orthopedic spine. Case discussed with ED attending, Dr. Mack. Undiagnosed new problem with uncertain prognosis? @ -None Drug Therapy requiring intensive monitoring for toxicity (Heparin, Nitro, Insulin, Cardizem)? @ -None Were any procedures done? @ -None Diagnosis/symptom? @ -Lumbar strain, intractable pain Acute, or Chronic, or Acute on Chronic? @ -Acute Uncomplicated (without systemic symptoms) or Complicated (systemic symptoms)? @ -Uncomplicated Side effects of treatment? @ -None Exacerbation, Progression, or Severe Exacerbation] @ -Not applicable Poses a threat to life or bodily function? @ -The pain is limiting her ability to function for the mean time. - Lab Data Result diagrams: 12/15/23 05:00 12/15/23 05:00 Lab Results 12/14/23 12/14/23 12/15/23 Range/Units 23:25 23:25 05:00 WBC 5.6 (3.8-10.6) k/uL RBC 4.91 (3.80-5.40) m/uL Hgb 13.7 (11.4-16.0) gm/dL Hct 42.8 (34.0-46.0) % MCV 87.2 (80.0-100.0) fL MCH 27.8 (25.0-35.0) pg MCHC 31.9 (31.0-37.0) g/dL RDW 14.5 (11.5-15.5) % Plt Count 304 (150-450) k/uL MPV 8.0 Neutrophils % 87 % Lymphocytes % 10 % Monocytes % 2 % Eosinophils % 1 % Basophils % 0 % Neutrophils # 4.9 (1.3-7.7) k/uL Lymphocytes # 0.5 L (1.0-4.8) k/uL Monocytes # 0.1 (0-1.0) k/uL Eosinophils # 0.1 (0-0.7) k/uL Basophils # 0.0 (0-0.2) k/uL Sodium (137-145) mmol/L Potassium (3.5-5.1) mmol/L Chloride (98-107) mmol/L Carbon Dioxide (22-30) mmol/L Anion Gap mmol/L BUN (7-17) mg/dL Creatinine (0.52-1.04) mg/dL Est GFR (CKD-EPI)AfAm (>60 ml/min/1.73 sqM) Est GFR (CKD-EPI)NonAf (>60 ml/min/1.73 sqM) Glucose (74-99) mg/dL Calcium (8.4-10.2) mg/dL Total Bilirubin (0.2-1.3) mg/dL AST (14-36) U/L ALT (4-34) U/L Alkaline Phosphatase (38-126) U/L Total Protein (6.3-8.2) g/dL Albumin (3.5-5.0) g/dL Urine Color Yellow Urine Appearance Clear (Clear) Urine pH 6.5 (5.0-8.0) Ur Specific [place] 1.027 (1.001-1.035) Urine Protein Negative (Negative) Urine Glucose (UA) Negative (Negative) Urine Ketones Negative (Negative) Urine Blood Negative (Negative) Urine Nitrite Negative (Negative) Urine Bilirubin Negative (Negative) Urine Urobilinogen <2.0 (<2.0) mg/dL Ur Leukocyte Esterase Trace H (Negative) Urine RBC 2 (0-5) /hpf Urine WBC 6 H (0-5) /hpf Ur Squamous Epith Cells 2 (0-4) /hpf Urine Bacteria Occasional H (None) /hpf Urine Mucus Rare H (None) /hpf Urine HCG, Qual Not Detected (Not Detectd) 12/15/23 Range/Units 05:00 WBC (3.8-10.6) k/uL RBC (3.80-5.40) m/uL Hgb (11.4-16.0) gm/dL Hct (34.0-46.0) % MCV (80.0-100.0) fL MCH (25.0-35.0) pg MCHC (31.0-37.0) g/dL RDW (11.5-15.5) % Plt Count (150-450) k/uL MPV Neutrophils % % Lymphocytes % % Monocytes % % Eosinophils % % Basophils % % Neutrophils # (1.3-7.7) k/uL Lymphocytes # (1.0-4.8) k/uL Monocytes # (0-1.0) k/uL Eosinophils # (0-0.7) k/uL Basophils # (0-0.2) k/uL Sodium 138 (137-145) mmol/L Potassium 4.8 (3.5-5.1) mmol/L Chloride 107 (98-107) mmol/L Carbon Dioxide 22 (22-30) mmol/L Anion Gap 9 mmol/L BUN 17 (7-17) mg/dL Creatinine 0.54 (0.52-1.04) mg/dL Est GFR (CKD-EPI)AfAm >90 (>60 ml/min/1.73 sqM) Est GFR (CKD-EPI)NonAf >90 (>60 ml/min/1.73 sqM) Glucose 123 H (74-99) mg/dL Calcium 9.0 (8.4-10.2) mg/dL Total Bilirubin 0.5 (0.2-1.3) mg/dL AST 25 (14-36) U/L ALT 31 (4-34) U/L Alkaline Phosphatase 51 (38-126) U/L Total Protein 6.7 (6.3-8.2) g/dL Albumin 4.1 (3.5-5.0) g/dL Urine Color Urine Appearance (Clear) Urine pH (5.0-8.0) Ur Specific [place] (1.001-1.035) Urine Protein (Negative) Urine Glucose (UA) (Negative) Urine Ketones (Negative) Urine Blood (Negative) Urine Nitrite (Negative) Urine Bilirubin (Negative) Urine Urobilinogen (<2.0) mg/dL Ur Leukocyte Esterase (Negative) Urine RBC (0-5) /hpf Urine WBC (0-5) /hpf Ur Squamous Epith Cells (0-4) /hpf Urine Bacteria (None) /hpf Urine Mucus (None) /hpf Urine HCG, Qual (Not Detectd) - Radiology Data Radiology results: report reviewed, image reviewed Disposition Clinical Impression: Strain of lumbar region, Intractable low back pain Disposition: ADMITTED IP TO THIS [facility] Time of Disposition: 03:08
[2023-12-14] MEDS: CYCLOBENZAPRINE 10 MG TAB PO STA (20:10)
[2023-12-14] MEDS: KETOROLAC 15 MG/ML 1 ML VIAL IVP STA (20:11)
[2023-12-14] MEDS: DEXAMETHASONE SOD PHOSPHATE 10 MG/ML 1 ML VIAL IVP STA (20:11)
[2023-12-14] MEDS: HYDROmorphone 0.5 MG/0.5 ML SYRINGE IVP STA ×2 (20:45→22:28)
--- NOTE | 2023-12-14 21:22 | CT ---
EXAMINATION TYPE: CT lumbar spine wo con DATE OF EXAM: 12/14/2023 COMPARISON: None HISTORY: Lower back pain after fall, unable to bear weight without back pain. CT DLP: 1507.2 mGycm CONTRAST: None TECHNIQUE: CT of the lumbar spine is performed on a spiral scan at 3 mm thick sections. Reconstructed images are performed in the coronal and sagittal planes. FINDINGS: T12-L1: No focal disc herniation or significant disc bulge is evident. No spinal canal stenosis or neural foraminal stenosis is present. L1-L2: No focal disc herniation or significant disc bulge is evident. No spinal canal stenosis or n eural foraminal stenosis is present L2-L3: No focal disc herniation or significant disc bulge is evident. No spinal canal stenosis or n eural foraminal stenosis is present L3-L4: No focal disc herniation or significant disc bulge is evident. No spinal canal stenosis or n eural foraminal stenosis is present L4-L5: No focal disc herniation or significant disc bulge is evident. No spinal canal stenosis or n eural foraminal stenosis is present L5-S1: No focal disc herniation or significant disc bulge is evident. No spinal canal stenosis or n eural foraminal stenosis is present Vertebral alignment appears normal. Within the pelvic soft tissues IUD appears to be present. However, the anterior left limb appears to be extraluminal to the uterus. This is in the right portion of the soft tissue. Confirmation of IUD p osition is recommended IMPRESSION: 1. No acute abnormality to account for specific back pain. 2. Note is made of unusual position of the IUD. Additional workup including history is recommended.
[2023-12-15 00:26] LABS: Appearance,Urine Clear (Clear); Bacteria,Urine Occasional /hpf; Bilirubin,Urine Negative (Negative); Blood,Urine Negative (Negative); Color,Urine Yellow; Glucose,Urine (UA) Negative (Negative); Ketones,Urine Negative (Negative); Leukocyte Esterase,Urine Trace (Negative); Mucus,Urine Rare /hpf; Nitrite,Urine Negative (Negative); PH, Urine 6.5 (5.0-8.0); Protein,Urine Negative (Negative); RBC,Urine 2 /hpf (0-5); Specific Gravity,Urine 1.027 (1.001-1.035); Squamous Epithelial Cell,Urine 2 /hpf (0-4); Urobilinogen,Urine <2.0 mg/dL (<2.0); WBC,Urine 6 /hpf (0-5)
--- NOTE | 2023-12-15 02:59 | US ---
EXAM: US Pelvis Transvaginal CLINICAL HISTORY: EXAMINATION TYPE: US transvaginal TECHNIQUE: Real-time transvaginal pelvic ultrasound with image documentation. Transvaginal imaging was used for better evaluation of the endometrium and adnexa. COMPARISON: No relevant prior studies available. FINDINGS: Uterus/cervix: IUD present. And contained within the endometrium Uterus measures 10 x 3.9 x 5.8 cm. Cervical nabothian cyst. Normal endometrial stripe thickness. No myometrial mass. Right ovary: Right ovary measures 2.1 x 2.1 x 2.5 cm. Normal blood flow. Left ovary: Left ovary not seen secondary to overlying bowel gas. Free fluid: No free fluid. Bladder: Empty bladder which cannot be evaluated with this probe. IMPRESSION: No acute findings in the pelvis. Appropriately positioned IUD
[2023-12-15] MEDS: MORPHINE SULFATE 4 MG/ML SYRINGE IVP STA (03:29)
[2023-12-15] MEDS: KETOROLAC 15 MG/ML 1 ML VIAL IVP STA (03:30)
[2023-12-15] MEDS: HYDROmorphone 0.5 MG/0.5 ML SYRINGE IVP STA (04:09)
[2023-12-15] MEDS ORDERED: HYDROcodone/APAP 5-325MG 1 EACH TAB PO PRN (05:07)
[2023-12-15] MEDS ORDERED: IBUPROFEN 400 MG TAB PO PRN (05:07)
[2023-12-15] MEDS ORDERED: ACETAMINOPHEN TAB 325 MG TAB PO PRN (05:07)
[2023-12-15] MEDS ORDERED: ONDANSETRON 4 MG/2 ML VIAL IVP PRN (05:07)
[2023-12-15] MEDS ORDERED: NALOXONE 0.4 MG/ML 1 ML VIAL IV PRN (05:07)
[2023-12-15] MEDS: traMADol 50 MG STARTER PACK 3 TAB BTL PO STA (05:14)
[2023-12-15 05:33] LABS: Basophils % (A) 0 %; Eosinophils # (A) 0.1 k/uL (0-0.7); Eosinophils % (A) 1 %; HCT 42.8 % (34.0-46.0); HGB 13.7 gm/dL (11.4-16.0); Lymphocytes # (A) 0.5 k/uL (1.0-4.8); Lymphocytes % (A) 10 %; MCH 27.8 pg (25.0-35.0); MCHC 31.9 g/dL (31.0-37.0); MCV 87.2 fL (80.0-100.0); Monocytes # (A) 0.1 k/uL (0-1.0); Monocytes % (A) 2 %; Neutrophils # (A) 4.9 k/uL (1.3-7.7); Neutrophils % (A) 87 %; Platelet Count 304 k/uL (150-450); RBC 4.91 m/uL (3.80-5.40); RDW 14.5 % (11.5-15.5); WBC 5.6 k/uL (3.8-10.6)
--- NOTE | 2023-12-15 05:33 | P.HPIM ---
History of Present Illness H&P Date: 12/15/23 Patient is a 38-year-old female with no known PMH who presents to the emergency room with complaints of back pain. Patient reports that she has a prior history of multiple back spasm and sciatica but that this episode is significantly worse. Notes that she was on the toilet this morning around 6 AM when she suddenly felt a pain radiate from her mid back up into her arm and around towards her leg. She reports that she felt paralyzed due to the pain and was unable to ambulate or do much of anything. Reports her pain is a 1 out of 10 at rest but significantly worsens to 8 out of 10 with any movement. Reports that she continues to have pain with even minimal limp at time of interview. Denies experiencing numbness or tingling of her hands or feet. Denies any urinary or bowel incontinence. Denies any additional paresthesias. Denied recent trauma or back instrumentation. Denies experiencing fever, chills, headaches, nausea, vomiting, abdominal pain, diarrhea. Lumbar spine CT in the emergency room was unremarkable with and ultrasound transvaginal showing an appropriately positioned IUD. Laboratory evaluation revealed an unremarkable UA. ED documentation reviewed and case discussed with ED provider. Review of systems: Pertinent positives and negatives as discussed in HPI, a complete review of systems was performed and all other systems are negative. Physical examination: Vital signs reviewed General: non toxic, no distress, appears at stated age, morbidly obese Derm: no unusual rashes/lesions, warm Head: atraumatic, normocephalic, symmetric Eyes: EOMI, no lid lag, anicteric sclera, pupils equal round reactive to light ENT: Nose and ears atraumatic Neck: No cervical lymphadenopathy, trachea midline, supple Mouth: no lip lesion, mucus membranes moist Cardiovascular: S1S2 reg, no murmur, positive dorsalis pedis pulse bilateral, no edema Lungs: CTA bilateral, no rhonchi, no rales, no accessory muscle use Abdominal: soft, nontender to palpation, no guarding Ext: muscle strength 3 out of 5 of bilateral lower extremities proximally due to pain, strength 5 out of 5 of bilateral lower extremities distally as well as bilateral upper extremities, no gross muscle atrophy, no contractures, mild bilateral paraspinal lumbar tenderness with no spinal tenderness noted Neuro: CN II-XI grossly intact, no gross focal neuro deficits Psych: Alert, oriented, appropriate affect Assessment: Intractable lower back pain, suspect due to spasm Imaging: Lumbar spine CT in the emergency room was unremarkable with and ultrasound transvaginal showing an appropriately positioned IUD Data Review: UA was unremarkable Plan: Continue with as needed pain medications Toradol, [place], Motrin, and morphine Orthopedic spinal surgery consulted Continue with Flexeril 10 mg p.o. 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 No other STDs. gestational htn / pih History of Any Multi-Drug Resistant Organisms: None Reported Past Surgical History: No Surgical Hx Reported Additional Past Surgical History / Comment(s): Past OB history: 2 vaginal deliveries and one VTP. Past Anesthesia/Blood Transfusion Reactions: No Reported Reaction Past Psychological History: Anxiety, Depression Smoking Status: Never smoker Past Alcohol Use History: Occasional - Past Family History Mother Family Medical History: Diabetes Mellitus, Hypertension, Renal Disease Additional Family Medical History / Comment(s): cardiomyopathy. medication induced lupus. Father Family Medical History: Diabetes Mellitus Additional Family Medical History / Comment(s): Paternal grandmother had colon cancer. Medications and Allergies Allergies Allergy/AdvReac Type Severity Reaction Status Date / Time No Known Allergies Allergy Verified 09/15/23 06:38 Physical Exam Vitals: Vital Signs Temp Pulse Resp BP Pulse Ox 12/14/23 22:05 72 16 122/76 95 12/14/23 19:30 98.1 F 64 16 127/81 98 Intake and Output 12/14/23 12/14/23 12/15/23 14:59 22:59 06:59 Other: Weight 120.202 kg Results Labs: Abnormal Lab Results - Last 24 Hours (Table) 12/14/23 Range/Units 23:25 Ur Leukocyte Esterase Trace H (Negative) Urine WBC 6 H (0-5) /hpf Urine Bacteria Occasional H (None) /hpf Urine Mucus Rare H (None) /hpf
[2023-12-15 05:47] LABS: ALT 31 U/L (4-34); AST 25 U/L (14-36); African American GFR (CKD) >90 (>60 ml/min/1.73 sqM); Albumin 4.1 g/dL (3.5-5.0); Alkaline Phosphatase 51 U/L (38-126); Anion Gap 9 mmol/L; Blood Urea Nitrogen 17 mg/dL (7-17); Carbon Dioxide 22 mmol/L (22-30); Chloride 107 mmol/L (98-107); Glucose 123 mg/dL (74-99); Non-African American GFR(CKD) >90 (>60 ml/min/1.73 sqM); Potassium 4.8 mmol/L (3.5-5.1); Sodium 138 mmol/L (137-145); Total Bilirubin 0.5 mg/dL (0.2-1.3); Total Protein 6.7 g/dL (6.3-8.2)
[2023-12-15] MEDS: ENOXAPARIN 40 MG/0.4 ML SYRINGE SQ SCH (09:23)
--- NOTE | 2023-12-15 10:51 | P.CNOR ---
History of Present Illness - [facility] Consult date: 12/15/23 History of present illness: Patient is a 38-year-old female who presented to the emergency department due to low back pain. Patient states she was on the toilet yesterday when her low back began to seize up on her. Patient had her son help her stand up from the toilet. Patient denies any issues with bowel/bladder control. Patient states the pain was mostly in the low back towards her tailbone. Patient states she has had some radiation of pain up into her arms as well as into her legs. Patient denies any previous orthopedic spine surgery. Patient denies any falls/traumas. Patient states she tried to walk her son to school which made the pain in her back even worse. Patient states some of the pain is alleviated when she lies flat. Patient states the pain has been pretty severe and currently rates it as 8 out of 10. Patient says the pain worsens with any movement of her lower extremities. Patient says she did have an epidural back in September of this year. CT scan of the lumbar spine as well as pelvic ultrasound was performed. Pelvic ultrasound confirms IUD placement. CT scan lumbar spine is negative for any fractures or stenosis. Patient says she does have a history of viral meningitis. Patient states she did feel somewhat feverish at home. She denies any headache/visual changes. Patient does note some nausea. Patient denies any GI issues. 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 No other STDs. gestational htn / pih History of Any Multi-Drug Resistant Organisms: None Reported Past Surgical History: No Surgical Hx Reported Additional Past Surgical History / Comment(s): Past OB history: 2 vaginal deliveries and one VTP. Past Anesthesia/Blood Transfusion Reactions: No Reported Reaction Past Psychological History: Anxiety, Depression Smoking Status: Never smoker Past Alcohol Use History: Occasional - Past Family History Mother Family Medical History: Diabetes Mellitus, Hypertension, Renal Disease Additional Family Medical History / Comment(s): cardiomyopathy. medication induced lupus. Father Family Medical History: Diabetes Mellitus Additional Family Medical History / Comment(s): Paternal grandmother had colon cancer. Medications and Allergies Home Medications Medication Instructions Recorded Confirmed Type No Known Home Medications 12/15/23 12/15/23 History Allergies Allergy/AdvReac Type Severity Reaction Status Date / Time No Known Allergies Allergy Verified 12/15/23 09:14 Physical Examination Inspection: Negative for any fractures, erythema, open wounds, ecchymosis. Sensation: Equal, symmetric, bilateral intact throughout the upper and lower extremities on exam. Palpation: Moderate tenderness to patient over the lower lumbar spine at midline. Some fair amount of tenderness with patient over the bilateral SI joints. NTTP on rest of exam Range of motion: Patient has full range of motion throughout bilateral upper extremities on exam. Patient has limited active range of motion in bilateral hip flexion secondary to referred pain and stiffness to the low back. Patient is able to flex bilateral knees to about 90 degrees while lying in bed. Patient unable to straighten knees on her own once they are flexed. I am able to passively flex the hips to about 45 degrees with referred pain to the low back. Once the knees are in flexion patient seems to tense up with muscular rigidity and is unable to extend the knees. Motor: 4+/5 in all major motor groups in bilateral upper extremities. 4-/5 in all major motor groups in bilateral lower extremities. Neurovascular: Radial pulse intact, 2+ bilaterally. Cap refill under 3 seconds in digits of upper extremities. Special test: Negative [place] bilaterally. Negative clonus bilaterally. Positive Kernig sign bilaterally. Negative [place] bilaterally. Results - Labs Labs: Abnormal Lab Results - Last 24 Hours (Table) 12/14/23 12/15/23 12/15/23 Range/Units 23:25 05:00 05:00 Lymphocytes # 0.5 L (1.0-4.8) k/uL Glucose 123 H (74-99) mg/dL Ur Leukocyte Esterase Trace H (Negative) Urine WBC 6 H (0-5) /hpf Urine Bacteria Occasional H (None) /hpf Urine Mucus Rare H (None) /hpf H & H 12/15/23 Range/Units 05:00 Hgb 13.7 (11.4-16.0) gm/dL Hct 42.8 (34.0-46.0) % Result Diagrams: 12/15/23 05:00 12/15/23 05:00 - Diagnostic results CT Scan - lumbar: report reviewed, image reviewed (CT scan lumbar spine is negative for any fractures, spondylolisthesis, central canal stenosis, neuroforaminal stenosis.) Assessment and Plan Assessment: 1. Lower back pain; muscular rigidity; history of viral meningitis Plan: 1. Lower back pain; muscular rigidity; history of viral meningitis - CT scan lumbar spine is negative for any fractures, spondylolisthesis, central canal stenosis, neuroforaminal stenosis. I did review the findings of the imaging and exam with my attending, Dr. Ugalde. At this time we are not recommending any emergent/urgent orthopedic surgical intervention. We are recommending conservative measures with the use of pain medication and steroids as needed. Physical therapy/Occupational Therapy recommendations. WBAT w/walker and asisitance as needed. We have consulted neurology due to muscular rigidity in the lower extremities as well as positive Kernig sign and history of viral meningitis. Orthopedics will continue to be available as needed to see patient. Please do not hesitate to reach out to us as needed. 2. Appreciate medical and neuro management 3. Pain management -[place]; Flexeril; Tylenol; Motrin 4. GI prophylaxis recs 5. DVT prophylaxis -Lovenox 6. PT/OT -weightbearing as tolerated with walker and assistance as needed 7. Encourage incentive spirometer use 8. Appreciate consult Time with Patient: Less than 30
[2023-12-15] MEDS: MORPHINE SULFATE 4 MG/ML SYRINGE IV PRN (12:05)
[2023-12-15] MEDS ORDERED: DEXAMETHASONE SOD PHOSPHATE 4 MG/ML 1 ML VIAL IVP PRN (13:31)
[2023-12-15] MEDS: CYCLOBENZAPRINE 10 MG TAB PO SCH (13:42)
[2023-12-15] MEDS: KETOROLAC 15 MG/ML 1 ML VIAL IVP PRN (17:27)
[2023-12-15] MEDS: DEXAMETHASONE SOD PHOSPHATE 4 MG/ML 1 ML VIAL IVP SCH (17:32)
--- NOTE | 2023-12-15 18:52 | P.CNNES ---
History of Present Illness Consult date: 12/15/23 Requesting physician: Marcelo Lr Reason for Consult: BLE rigidity; positive Kernig sign; h/o viral meningitis History of Present Illness: Patient is a 38-year-old right-handed female with history of intermittent lower back pain, came to the hospital by ambulance yesterday at 7:27 PM with acute worsening of the back pain. Patient states that yesterday at 6:30 PM, she went to use the bathroom. Prior to that she was perfectly fine. She was sitting in the toilet, as usual only for few minutes, when she developed acute back pain that started in the lower back then went all the way to the legs, feet to the toes, then up the back to the arms up to the elbows. She could not lift her arms up beyond the shoulder. Symptoms were bilaterally symmetric involving the arms and legs. She felt as if she was just stuck. She called her son, who helped her and pulled from the toilet. She was able to walk "but barely". She sat down in the recliner and then could not get up. She felt her whole body seized. By 7 PM, she was not able to get up or use bathroom. It was too painful to move. Therefore EMS was called. Patient denies any excessive straining when she was in the bathroom. As per EMS flowsheet when they arrived, patient was in a reclining chair. Patient was alert and orient x 4. Patient states she felt like her sciatic nerve was inflamed this morning. She denies any trauma or falls. Patient stated when she laid down, she was no longer able to move due to pain. Patient mentioned that she has not been able to move her lower extremities since 630 this morning. She tried heating pads, muscle relaxers with no relief. Pain was 10/10 upon movement. Patient received 24 mg of ketamine diluted in 100 mL of normal saline over 10 minutes. Patient states her pain gradually decreased from 10/10 down to 0/10. Patient's blood pressure was 156/86, pulse rate 75 respiration 18 saturation 99%. Since she arrived to the hospital, patient has been receiving muscle relaxers, pain medication. With pain medications, she cannot turn, but can barely get up. Last night she attempted to sit up on the side of the bed. Her right leg was able to come off the bed, but when she tried to bring the left leg down, she just seized and could not move. This morning the opposite leg bothered her when she was trying to sit on the side of the bed. She feels that she can bend her legs, but cannot lift the legs off the bed. Patient denies any numbness or tingling in the legs or any weakness. She just has low back pain, in the center of the lower back. At present, when she is laying, she is fine. If she moves her legs or turns, it hurts. With pain medication, she can turn on the side she feels that she could slowly sit up. The longer she sits, it ceases her whole body. Denies any problem with bowel or bladder control, although while in the hospital, she is suction used for urination. Patient states that since she had undergone lumbar puncture at 17 years of age, she gets sporadic back pain. She would be walking upstairs, when she would freeze but lasts only a few minutes. It is occurring about slightly more than once a year. Never had this intense back issue, and never lasted that long. Blood test shows normal CBC, CMP, UA shows trace leukocyte esterase. Patient is afebrile. Blood pressure 127/81. CT of the lumbar spine showed no acute abnormality to account specific back pain. Note is made of unusual position of the IUD. Additional workup including history is recommended. Pelvic ultrasound was normal. Appropriately positioned IUD. Patient states she has history of viral meningitis when she was 17 years old. She was hospitalized for about 4 days. Patient underwent lumbar puncture at that time. Since then she has had occasional, intermittent lower back pain. Patient denies diabetes, hypertension any tobacco use. She drinks alcohol se ldom. Denies any marijuana use. Review of Systems All pertinent positive and negative mentioned in HPI. Patient denies any headache at this time. No fever or chills. 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 No other STDs. gestational htn / pih History of Any Multi-Drug Resistant Organisms: None Reported Past Surgical History: No Surgical Hx Reported Additional Past Surgical History / Comment(s): Past OB history: 2 vaginal deliveries and one VTP. Past Anesthesia/Blood Transfusion Reactions: No Reported Reaction Past Psychological History: Anxiety, Depression Smoking Status: Never smoker Past Alcohol Use History: Occasional - Past Family History Mother Family Medical History: Diabetes Mellitus, Hypertension, Renal Disease Additional Family Medical History / Comment(s): cardiomyopathy. medication induced lupus. Father Family Medical History: Diabetes Mellitus Additional Family Medical History / Comment(s): Paternal grandmother had colon cancer. Medications and Allergies Home Medications Medication Instructions Recorded Confirmed Type No Known Home Medications 12/15/23 12/15/23 History Allergies Allergy/AdvReac Type Severity Reaction Status Date / Time No Known Allergies Allergy Verified 12/15/23 09:14 Physical Examination - Vital Signs Vital Signs: Vital Signs Temp Pulse Resp BP Pulse Ox 12/15/23 07:00 76 18 136/88 97 12/15/23 03:00 80 20 136/95 98 12/14/23 22:05 72 16 122/76 95 12/14/23 19:30 98.1 F 64 16 127/81 98 Intake and Output 12/14/23 12/15/23 12/15/23 22:59 06:59 14:59 Other: Weight 120.202 kg Patient is a young female, in no acute distress. Patient is alert awake oriented to time place and person. Speech and language functions are normal. Patient can name and repeat very well. No aphasia or dysarthria. Attention, concentration and fund of knowledge is adequate. On cranial nerve examination, pupils are equal, round and reacting to light, visual lopez are full on confrontation, with no neglect on double simultaneous stimulation. Extraocular muscles are intact with no nystagmus. Face is symmetric, tongue protrudes to the midline. Palatal elevation and sensation normal, hearing and shoulder shrug normal, facial sensation normal. On muscle strength testing, there is no pronator drift and the strength is normal in arms and legs distally and proximally. Even the strength in the lower extremities is normal. She has some guarding with hip flexion, but hip adduction, hip abduction, knee extension, ankles and toes are normal. Deep tendon reflexes are symmetric 1 at the biceps, 1 brachioradialis, 2 at the knees, 1+ ankles and plantars downgoing bilaterally. Sensory to touch is equal with no neglect on double simultaneous stimulation. Cerebellar function showed no ataxia for [id number] testing. No dysdiadochokinesia. Difficulty with checking for [id number] testing because of pain. Tone and bulk of muscles normal. Gait deferred.. On general examination, there is no carotid bruit or murmur, S1-S2 audible. Chest is clear on consultation. Abdomen is soft nontender. No organomegaly, bowel sounds present. Peripheral pulses are present. No peripheral edema. Results - Laboratory Findings CBC and BMP: 12/15/23 05:00 12/15/23 05:00 Abnormal Lab Findings: Abnormal Labs 12/14/23 12/15/23 12/15/23 23:25 05:00 05:00 Lymphocytes # 0.5 L Glucose 123 H Ur Leukocyte Esterase Trace H Urine WBC 6 H Urine Bacteria Occasional H Urine Mucus Rare H Assessment and Plan Assessment: * Acute onset of lower back pain, without any obvious trigger. It happened while patient was sitting in the toilet. Patient denies any significant radicular symptoms. Patient has had these spells of acute low back pain, off and on since age 17 after she had undergone lumbar puncture for viral me ningitis. However the symptoms are usually transient lasting for few minutes, never lasted that long and was never severe like this time. Patient's examination is nonfocal. She still has preserved strength in the lower limbs and preserved reflexes and sensations. Patient denies headache. No clinical evidence of meningitis. Patient probably has back spasm. CT of the lumbar spine showed no abnormalities. * Obesity Plan: * Patient has received dexamethasone 10 mg IV push once. We will resume dexamethasone 4 mg every 6 hours. * Flexeril 10 mg twice daily. * Toradol as needed. * PT, OT evaluate gait. * Orthopedic surgery on board. * No clinical evidence of viral meningitis. No need for lumbar puncture. * ESR, CRP. * Dr. Florencio Miller to resume neurology service on the morning. * Thank you for the consult.
[2023-12-15 20:42] VITALS: RESP 18
[2023-12-15] MEDS ORDERED: CYCLOBENZAPRINE 10 MG TAB PO SCH (21:00)
--- NOTE | 2023-12-16 10:22 | P.PN ---
Subjective Progress Note Date: 12/16/23 Principal diagnosis: Low back pain, lumbar strain Patient was evaluated at bedside today, she is resting in her hospital bed. She is feeling much better than yesterday, she did receive the 10 mg of IV Decadron and remains on 4 mg every 6 hours. They are also utilizing muscle relaxers on occasion. Patient's lower extremity range of motion is a lot better today. She is eager to work with therapy to attempt ambulation today. She denies any worsening numbness or tingling to the lower extremities. She denies any numbness or tingling to the perineal or genital region. She denies any loss of bowel or bladder function. Objective - Vital Signs Vital signs: Vital Signs Temp 98.0 F 12/16/23 07:00 Pulse 57 L 12/16/23 07:00 Resp 18 12/16/23 07:00 BP 117/83 12/16/23 07:00 Pulse Ox 95 12/16/23 07:00 FiO2 Intake & Output 12/15/23 12/16/23 12/16/23 18:59 06:59 18:59 Weight 120.202 kg Other: Voiding Method External Catheter # Voids 1 - Exam Gen: AOx3, NAD VSS stable at this time Integument: No open lesions, sores or areas of erythema surrounding the cervical, thoracic or lumbar spine Palpation: Tenderness to palpation noted to the SI joint and lumbar paraspinal region seems improved since yesterday ROM: Full range of motion in all major muscle groups of bilateral upper extremities Range of motion is still altered slightly in the lower extremities, she is able to flex the hips bilaterally better, she is also able to extend and flex the knees better. Plantarflexion, dorsiflexion, EHL, FHL are intact Sensory Exam: Senory exam to light touch is intact C5-T1 Senosry exam to light touch is intact L2-S1 Motor: 4/5 strength appreciated the bilateral lower extremities with hip flexion, knee extension, knee flexion, plantarflexion, dorsiflexion, EHL, FHL Reflexes: 2/4 in all UE and LE Negative Daisy's bilaterally - Labs CBC & Chem 7: 12/15/23 05:00 12/15/23 05:00 Assessment and Plan Assessment: Low back pain Lumbar strain Bilateral lower extremity pain referred from the low back Other medical comorbidities Plan: Continue with conservative measures, this to include tapering down on the steroid, Tylenol, NSAIDs, as needed muscle relaxer No orthopedic surgical intervention is recommended at this time Weight-bear as tolerated GI and DVT prophylaxis per primary medical service Orthopedically patient remained stable, our follow-up information will be placed in chart. Please contact our service with any questions regarding this patient Time with Patient: Less than 30
--- NOTE | 2023-12-16 13:34 | P.DS ---
Providers Date of admission: 12/15/23 05:08 Expected date of discharge: 12/16/23 Attending physician: Blanca Fortune MD Consults: 12/15/23 05:07 Consult Physician Urgent Consulting Provider: Salty Ugalde Consult Reason/Comments: Intractable back pain Do you want consulting provider notified?: Yes 12/15/23 10:21 Consult Physician Routine Consulting Provider: Florencio Miller Consult Reason/Comments: BLE rigidity; positive Kernig sign; h/o viral meningitis Do you want consulting provider notified?: Yes Primary care physician: Stated None Hospital Course: Discharge Diagnosis: Intractable lower back pain Acute low back muscle strain/sprain Radiculopathy Hospital Course: 38-year-old female with morbid obesity, presenting with acute back pain. Vitals stable. Laboratory workup unremarkable. ESR CRP negative. Lumbar spine CT did not show any specific process to explain severe back pain. She was admitted for intractable back pain. Ortho was consulted. Not recommending any interventions. Neurology was also consulted to rule out any suspicious infectious causes. Inflammatory markers negative. Patient being discharged with steroid taper as well as muscle relaxers and pain medications. Patient is ambulating at the time of discharge. Follow-up with PCP and Ortho outpatient. Patient seen and examined at bedside. Vital signs reviewed and stable. General: Nontoxic, no distress, appears at stated age, morbidly obese Derm: Warm, dry Head: Atraumatic, normocephalic, symmetric Eyes: EOMI, no lid lag, anicteric sclera Mouth: No lip lesion, mucus membranes moist Cardiovascular: S1S2 reg, no murmur Lungs: CTA bilateral, no rhonchi, no rales, no accessory muscle use Abdominal: Soft, nontender to palpation, no guarding, no appreciable organomegal y Ext: No gross muscle atrophy, no edema, no contractures Neuro: CN II-XI grossly intact, no focal neuro deficits Psych: Alert, oriented, appropriate affect A total of 33 minutes of time were spent preparing this complex discharge summary. Patient was discharged on 12/16/2023 at 1330 Patient Condition at Discharge: Stable Plan - Discharge Summary Discharge Rx Participant: Yes New Discharge Prescriptions: New Ibuprofen [Motrin] 400 mg PO Q6HR PRN tab PRN Reason: Mild Pain Or Fever > 100.5 HYDROcodone/APAP 5-325MG [[place] 5-325] 1 each PO Q4HR PRN #18 tab PRN Reason: Moderate Pain (Scale 4 To 6) Acetaminophen Tab [Tylenol] 650 mg PO Q6HR PRN tab PRN Reason: Mild Pain Or Fever > 100.5 methylPREDNISolone Dose Pack [Medrol Dose Pack] 4 mg PO DIRECTED #1 packet Cyclobenzaprine [Flexeril] 10 mg PO BID PRN #30 tab PRN Reason: Muscle Spasm Discharge Medication List Acetaminophen Tab [Tylenol] 650 mg PO Q6HR PRN tab 12/16/23 [Rx] Cyclobenzaprine [Flexeril] 10 mg PO BID PRN #30 tab 12/16/23 [Rx] HYDROcodone/APAP 5-325MG [[place] 5-325] 1 each PO Q4HR PRN #18 tab 12/16/23 [Rx] Ibuprofen [Motrin] 400 mg PO Q6HR PRN tab 12/16/23 [Rx] methylPREDNISolone Dose Pack [Medrol Dose Pack] 4 mg PO DIRECTED #1 packet 12/16/23 [Rx] Follow up Appointment(s)/Referral(s): Geri Estrada, FERNANDO [Nurse Practitioner] - As Needed None,Stated [Primary Care Provider] - 1-2 days Patient Instructions/Handouts: Opioid Safety (DC), Low Back Strain (DC) Activity/Diet/Wound Care/Special Instructions: Please see PCP and ortho. If you do not have PCP, please call the followin number to make an appointment. [facility] Address: [address] [place] [id number] Discharge Disposition: HOME SELF-CARE
[2023-12-16 14:21] VITALS: BP 131/87; PULSE 69; TEMP 98.3
== END 2023-12-16 18:40 | disposition home or self-care (01) ==
LOC: EC 19:27 → 4SSUR 12-15 05:08
PROVIDERS: ADMIT Internal Medicine; ATTEND Internal Medicine
DX: S39.012A Strain of muscle, fascia and tendon of lower back, initial encounter (principal); M54.10 Radiculopathy, site unspecified; F41.9 Anxiety disorder, unspecified; F32.A Depression, unspecified; E66.01 Morbid (severe) obesity due to excess calories; Z68.41 Body mass index [BMI] 40.0-44.9, adult; Z86.61 Personal history of infections of the central nervous system; X58.XXXA Exposure to other specified factors, initial encounter
CPT/HCPCS: 36415; 72131; 76830; 76856; 80053; 81001; 81025; 85025; 85652; 86140; 93976; 96372; 96374; 96375; 96376; 99285

== ENCOUNTER → 2024-08-15 | Outpatient (CLI) | payer OTHER ==
--- NOTE | 2024-08-15 09:13 | MR ---
INDICATION: Patient age:Female; 38 years old; Reason for study: W19.XXXA FALL M54.9 DORSALGIA R52 PAIN; PHH. COMPARISONS: CT lumbar spine 12/14/2023. TECHNIQUE: Multi planar, multi sequence imaging was performed utilizing: T1-weighted, T2-weighted, a nd turbo inversion recovery imaging of the lumbar spine. The patient was not given contrast. FINDINGS: The lumbar vertebral bodies do have preserved heights and alignment. No evidence for fract ure. Disc desiccation at L3-L4 and L4-L5. The conus medullaris and the distal spinal cord do appear unremarkable with regards to their signal intensity and morphology. Posterior back subcutaneous soft tissue edema. L1-L2: No significant disc pathology is identified. The spinal canal and neural foramen are patent. L2-L3: No significant disc pathology is identified. The spinal canal and neural foramen are patent. L3-L4: Minimal broad-based disc bulge without central canal stenosis. No neural foraminal stenosis. L4-L5: Central disc protrusion with mild effacement of the anterior thecal sac. No significant centra l canal stenosis. No neural foraminal stenosis. L5-S1: No significant disc pathology is identified. The spinal canal and neural foramen are patent. Other significant findings: None. IMPRESSION: Mild multilevel disc degeneration at L3-L4 and L4-L5 with central disc protrusion at L4-L5 without si gnificant central canal stenosis. No neural foraminal stenosis. [facility], , 08/15/2024 9:11 AM
== END | disposition home or self-care (01) ==
LOC: RADMRIMAIN 08:03
PROVIDERS: ATTEND Family Medicine
DX: M51.360 Other intervertebral disc degeneration, lumbar region with discogenic back pain only (principal); M51.26 Other intervertebral disc displacement, lumbar region; W19.XXXA Unspecified fall, initial encounter
CPT/HCPCS: 72148

== ENCOUNTER → 2024-09-26 | Outpatient (CLI) | payer OTHER ==
[2024-09-26 13:18] VITALS: BP 111/80; PULSE 80; RESP 16; TEMP 97.3
--- NOTE | 2024-09-26 16:23 | P.PAINPG ---
Objective - Vital Signs Vital signs: Intake & Output 09/25/24 09/26/24 09/26/24 18:59 06:59 18:59 Weight 115.666 kg PQRS Measure Charge Sheet Comment: HISTORY OF PRESENT ILLNESS: A 39 yr old female as a referral from Dr Trujillo presents today w severe and chronic LBP > 3 mo secondary to radiculopathy, spondylosis and facet arthropathy without myelopathy for evaluation. Pt states pain level is provoked at 8 /10 in intensity, constant, localized in the lumbar spine, predominantly axial, throbbing in character w occasional shooting pain towards buttocks, hips, knee and LEs. Pain is provoked by lifting, sitting for periods > 30 min. Pain is alleviated by PT x 12 wks which ended in Apr 2024, chiropractic treatments semi monthly since May 2024 which she is currently in, heat, ice, repositioning and rest . Oswestry axial pain score at 15. PMH: OA, MDD/ Anxiety PSH: Denies SH: Never smoker, Occ ETOH use, No illicit drug use FH: Mo- DM, CAD, CKD. Fa- DM All: See list Medications include REVIEW OF ORGAN SYSTEMS: CONSTITUTIONAL: No fevers or chills. No recent weight loss. NEUROLOGICAL: + numbness and tingling along the distal extremities. No seizure disorders or headaches. MUSCULOSKELETAL: + pain PSYCHIATRIC: Denies current depression or suicidal thoughts. Physical Examinations : Constitutional : Cooperative , not in acute distress . Neurologic : Cranial nerve II to XII intact. No focal neurological deficits. Psychiatric : alert & oriented x 3. Matching mood & appropriate affect. Judgment & insight intact. Musculoskeletal : Cervical Spine Motor strength in the deltoid and biceps: Normal right side. Normal Left side Motor strength biceps and the wrist extensors: Normal right side . Normal left side Motor strength in the triceps muscle: Normal right side. Normal left side Deep tendon reflexes: Normal at the biceps. Normal at Brachioradialis. Normal at triceps Vertebral body tenderness to deep palpation over Cervical facet loading test: positive bilaterally Spurling test: positive bilaterally Neck distraction test: positive bilaterally Daisy sign: positive bilaterally Lumbar spine Motor strength lower extremities ,thigh and legs 5/5 Right side , 5/5 Left side Deep tendon reflexes : Normal Knee Jerk. Normal Ankle Jerk Vertebral body tenderness over L4 Goyal Test positive Lumbar facet Loading Test: positive Right / positive Left Range of motion of the lumbar spine Flexion 30 degrees, extension 10 degrees Straight Leg Raise test: Left/ Right positive at < 30 degrees Cali test: positive right / positive left. Severe tenderness over the Sacroiliac joint on the Right / Left sides Gaenslen test: positive bilaterally Seated flexion test: positive bilaterally. Sacral spine : Severe tenderness over the Sacroiliac joint: right side / left side Range of motion: Flexion of the lumbar spine <60 degrees Range of motion: Extension of the lumbar spine <20 degrees Gaenslen's Test positive Cali test: positive right side / left side Thigh Thrust Test Sacral Thrust Test Imaging: MRI non contrast lumbar spine from 08/15/24 reviewed Assessment/ Plan : L3-L4, L4-L5 radiculopathy Recommendation of R paramedian HAYLEE L4-L5 #1 and medication management. [place] 5/325mg #60 w RF. Opiate/ narcotic agreement signed 09/26/24. Use, side effects, adverse reactions, safe storage discussed. Risks, benefits of procedure discussed and patient verbalized understanding. Admits to anti- coagulant use or medical history of diabetes. Protocol for discontinuation/ continuation of medications tyson procedure discussed. All questions answered. I have spent greater than 30 minutes on patient care today. Dr Smith was available by phone for the evaluation of this patient. The time was used to review the medical records including relevant urine studies and Prescription history (MAPs), review of the available imaging, evaluation and examination of the patient, coordination of care with the medical staff and if applicable referring physicians, as well as creation of the medical record - Pain Location Right Lower Back Non-Pharmacological Interventions: Position/Reposition Pharmacological Interventions: PRN Medication, Scheduled Medication, Topical Medication Home Medications: Ambulatory Orders Acetaminophen Tab [Tylenol] 650 mg PO Q6HR PRN tab 12/16/23 Cyclobenzaprine [Flexeril] 10 mg PO BID PRN #30 tab 12/16/23 Ibuprofen [Motrin] 400 mg PO Q6HR PRN tab 12/16/23 methylPREDNISolone Dose Pack [Medrol Dose Pack] 4 mg PO DIRECTED #1 packet 12/16/23 HYDROcodone/APAP 5-325MG [[place] 5-325] 1 each PO BID PRN 30 Days #60 tab 09/26/24 HYDROcodone/APAP 5-325MG [[place] 5-325] 1 tab PO BID PRN 30 Days #60 tab 09/26/24 Semaglutide [Wegovy] 2.4 mg SQ 09/26/24 Controlled Substance Measures - Controlled Substance Measures Is patient prescribed a controlled substance at discharge?: Yes When asked, does pt state using other controlled substances?: Yes If prescribed controlled substance>3 days was MAPS reviewed?: Yes If Rx opioid, was Start Talking consent form obtained?: Yes Was information provided regarding opioid addiction?: Yes
== END ==
LOC: PNWHC3 12:54
PROVIDERS: ATTEND Specialist
DX: M47.26 Other spondylosis with radiculopathy, lumbar region (principal)
CPT/HCPCS: 99211

== ENCOUNTER 2024-10-18 06:24 | Day surgery (SDC) | payer OTHER ==
[~2024-10-18 06:24] MED LIST: LACTATED RINGERS 1,000 ML IV SCH
[2024-10-18 06:48] VITALS: TEMP 97.2
[2024-10-18] MEDS ORDERED: methylPREDNISolone ACETATE 80 MG/ML 1 ML VIAL ONE (07:20)
[2024-10-18] MEDS ORDERED: IOPAMIDOL M300 15ML VIAL ONE (07:20)
[2024-10-18 07:40] VITALS: RESP 16
--- NOTE | 2024-10-18 07:42 | P.PCN ---
Description of Procedure: PREOPERATIVE DIAGNOSIS: 1- Lumbar Degenerative Disc Diseases 2-Lumbar spondylosis with Facet arthropathy without myelopathy. 3-lumbar spinal stenosis 4-Lumber radiculopathy POSTOPERATIVE DIAGNOSIS: 1-lumbar degenerative disc disease. 2-lumbar spondylosis with facet arthropathy without myelopathy. 3-lumbar spinal stenosis. 4-Lumber radiculopathy PROCEDURE Injection of radio contrast material into L4-5 interspace, interpretation of epidurogram, injection of steroid at L4- 5 epidural space under fluoroscopic guidance. ANESTHESIA: Lidocaine 1% subcutaneously. In OR continuous pulse ox, EKG, blood pressure and verbal communication was maintained with the patient. EBL: Minimal PROCEDURE INDICATION: Before the procedure were discussed with the patient detailed procedure, alternatives, complications including infection, bleeding, nerve damage, paralysis all of which could be permanent. Patient understands and all questions were answered. PROCEDURE DESCRIPTION : After getting consent, patient in OR in prone position. Back was prepped with chlorhexidine and draped in sterile fashion. After injecting 10 mL of 1% lidocaine subcutaneously, a 18-gauge Tuohy needle was introduced at L4 5 interspace with loss of resistance technique using a syringe filled with air. Negative CSF, negative blood, negative paresthesia. Needle position was confirmed with AP and lateral view of the fluoroscope. After repeat negative aspiration 2 mL of Omnipaque 200 water soluble contrast was injected. Contrast was noted in the epidural space. No contrast was noted into intrathecal or intravascular space. After repeat negative aspiration 6 mL solution was injected intermittently which consists of 5 mL of preservative-free normal saline mixed with 1 mL of 80 mg Depo-Medrol. Needle was withdrawn intact. Skin was cleansed and Band-Aids was applied. DISPOSITION / PLANS: The patient tolerated the procedure well. No complication. The patient was placed in a supine position and transferred to the recovery area in a stable condition for observation. There was no evidence of lower extremity motor or sensory deficit after the procedure. Patient was discharged from the recovery room after meeting discharge criteria. Home discharge instructions were given to the patient by the staff. The patient was reexamined prior to discharge. The patient will schedule a follow up in the clinic in 2-4 weeks.
[2024-10-18 07:54] VITALS: BP 115/79; PULSE 83
--- NOTE | 2024-10-18 08:12 | FL ---
EXAMINATION TYPE: FL guided pain mgmt statistic DATE OF EXAM: 10/18/2024 7:41 AM COMPARISON: Pre Operative Images if available both CT/MRI or plain film CLINICAL INDICATION: Female, 39 years old with history of LESI; TECHNIQUE: FL guided pain mgmt statistic, multiple fluoroscopic images provided for procedure. DAP: 0.14828 mGym2 Gycm2 uGym2 cGycm2 or equivalent. FINDINGS: Fluoroscopic images during injection for pain management demonstrate multilevel degeneration changes throughout the spine. No evidence for fracture. No acute process identified. IMPRESSION: 1. No evidence for intraoperative complication. 2. Please see the operative/procedural note for further details. [facility], , 10/18/2024 8:09 AM
== END 2024-10-18 08:10 | disposition home or self-care (01) ==
LOC: ORPAIN 06:24
PROVIDERS: ATTEND Pain Medicine Interventional Pain Medicine
DX: M51.16 Intervertebral disc disorders with radiculopathy, lumbar region (principal); M47.26 Other spondylosis with radiculopathy, lumbar region; M48.061 Spinal stenosis, lumbar region without neurogenic claudication
CPT/HCPCS: 81025; 62323; Q9967; J1010